=== PATIENT | female | born 1985 | race Caucasian/White ===

== ENCOUNTER 2017-08-11 06:38 | Day surgery (SDC) | payer OTHER ==
[~2017-08-11] VITALS: Ht 170.2 cm; Wt 64.3 kg
[2017-08-11] MEDS ORDERED: ISOSULFAN BLUE 10 MG/ML, 5ML IV ONE (07:10)
[2017-08-11] MEDS ORDERED: BUPIVACAINE/PF 0.5% ONE (07:10)
[2017-08-11] MEDS ORDERED: LACTATED RINGERS 1,000 ML IV SCH (07:13)
[2017-08-11] MEDS ORDERED: LAMO250T2 PO (07:18)
[2017-08-11] MEDS ORDERED: IBUP-1223 PO (07:18)
[2017-08-11] MEDS ORDERED: MELA10CA PO (07:18)
[2017-08-11] MEDS ORDERED: POTASSIUM PO (07:18)
[2017-08-11] MEDS ORDERED: BIOTIN PO (07:18)
[2017-08-11] MEDS ORDERED: PARO25TA3 PO (07:18)
[2017-08-11 07:19] LABS: HCG UR LOT HCG7030192
[2017-08-11 07:23] LABS: HCG UR OBC PASS
[2017-08-11 07:35] VITALS: BP 118/84
[2017-08-11] MEDS ORDERED: BUPIVACAINE/PF 0.5% INFIL ONE (07:58)
[2017-08-11] MEDS ORDERED: MIDAZOLAM 1 MG/ML, 2ML ONE ×2 (08:09→08:30)
[2017-08-11] MEDS ORDERED: FENTANYL PF 250 MCG/5ML ONE ×2 (08:09→08:30)
[2017-08-11] MEDS ORDERED: ONDANSETRON 2MG/ML, 2ML ONE ×2 (08:16→08:30)
[2017-08-11] MEDS ORDERED: LIDOCAINE GEL 2%, 5ML ONE (08:16)
[2017-08-11] MEDS ORDERED: DEXAMETHASONE 4 MG/ML, 1ML ONE ×3 (08:16→08:30)
[2017-08-11] MEDS ORDERED: PROPOFOL 10 MG/ML, 20ML ONE ×2 (08:16→08:30)
[2017-08-11] MEDS ORDERED: CEFAZOLIN 1,000 MG ONE ×3 (08:16→08:30)
[2017-08-11] MEDS ORDERED: HYDROmorphone 1 MG/ML, 1ML IV PRN (08:30)
[2017-08-11] MEDS ORDERED: OXYcodone 5 MG/5 ML ORAL.SOL UDC PO PRN (08:30)
[2017-08-11] MEDS ORDERED: MEPERIDINE/PF 25MG/0.5ML IVPush PRN (08:30)
[2017-08-11] MEDS ORDERED: FENTANYL PF 100 MCG/2ML IV PRN (08:30)
[2017-08-11] MEDS ORDERED: PROMETHAZINE 25 MG/ML, 1ML IV PRN (08:30)
[2017-08-11] MEDS ORDERED: ACETAMINOPHEN 325 MG TABLET PO PRN (08:30)
[2017-08-11] MEDS ORDERED: EPHEDRINE 50 MG/ML, 1ML ONE (08:30)
[2017-08-11] MEDS ORDERED: ONDANSETRON 2MG/ML, 2ML IVPush PRN (08:30)
[2017-08-11] MEDS ORDERED: FENTANYL PF 100 MCG/2ML ONE (09:23)
[2017-08-11] MEDS ORDERED: MEPERIDINE/PF 25MG/0.5ML ONE (09:23)
[2017-08-11] MEDS ORDERED: OXYcodone 5 MG/5 ML ORAL.SOL UDC ONE (09:33)
[2017-08-11] MEDS ORDERED: ACETAMINOPHEN 650 MG/20.3 ML UDC ONE (09:33)
== END 2017-08-11 12:15 ==
LOC: OUT 06:38
PROVIDERS: ATTEND Surgery
DX: D24.1 Benign neoplasm of right breast (principal); F32.9 Major depressive disorder, single episode, unspecified; F41.9 Anxiety disorder, unspecified; Z80.0 Family history of malignant neoplasm of digestive organs; J45.909 Unspecified asthma, uncomplicated; Z98.890 Other specified postprocedural states
CPT/HCPCS: 19120; 81025; 88305; J0690; J1100; J2175; J2250; J2405; J2704; J3010; J3490; J7120

== ENCOUNTER 2019-01-15 14:11 | Outpatient (CLI) | payer OTHER ==
[~2019-01-15 14:11] MED LIST: BIOTIN PO; IBUP-1223 PO; LAMO250T2 PO; MELA10CA PO; PARO25TA3 PO; POTASSIUM PO
== END 2019-01-15 23:59 | disposition home or self-care (01) ==
LOC: CFH 14:11
PROVIDERS: ATTEND Student in an Organized Health Care Education/Training Program
DX: N63.10 Unspecified lump in the right breast, unspecified quadrant (principal); N64.4 Mastodynia
CPT/HCPCS: 76642; 77066; G0279; 77065